=== PATIENT | female | born 1985 | race Caucasian/White ===

== ENCOUNTER 2019-02-14 11:42 | Emergency (ER) | payer BC ==
[2019-02-14] MEDS ORDERED: Lidocaine 2% 20 ml MDV ONE (11:58)
== END 2019-02-14 12:35 | disposition home or self-care (01) ==
LOC: MADERS 11:42
DX: S61.011A Laceration without foreign body of right thumb without damage to nail, initial encounter (principal); F17.210 Nicotine dependence, cigarettes, uncomplicated; W45.8XXA Other foreign body or object entering through skin, initial encounter
CPT/HCPCS: 96372; 99282; J2001